=== PATIENT | female | born 1955 ===

== ENCOUNTER 2024-12-31 06:21 | Day surgery (SDC) | payer MEDICARE, OTHER, SELFPAY | END 2024-12-31 12:00 | disposition home or self-care (01) | LOC: GI 06:21 | PROVIDERS: ATTENDING PHYSICIAN Internal Medicine Gastroenterology | DX: Z12.11 Encounter for screening for malignant neoplasm of colon (principal); K51.00 Ulcerative (chronic) pancolitis without complications | CPT/HCPCS: 45380; 88305 ==